=== PATIENT | male | born 1970 | race Caucasian/White ===

== ENCOUNTER 2021-07-09 12:21 | Emergency (ER) | payer OTHER ==
[2021-07-09] MEDS ORDERED: DIPHTH,PERTUSS(ACELL),TET 0.5 ML DISP.SYRIN IM ONE ×2 (12:32→12:41)
[2021-07-09 12:39] VITALS: BP 150/93; PULSE 92; TEMP 98.3; BMI 27.2
== END 2021-07-09 13:50 | disposition home or self-care (01) ==
LOC: FER 12:21
PROC: 3E0234Z Introduction of Serum, Toxoid and Vaccine into Muscle, Percutaneous Approach (ICD-10-PCS; principal; 2021-07-09)
DX: S69.91XA Unspecified injury of right wrist, hand and finger(s), initial encounter (principal); W22.8XXA Striking against or struck by other objects, initial encounter
CPT/HCPCS: 73140-TC-RT-FY; 90715; 99283-25